=== PATIENT | male | born 2000 ===

== ENCOUNTER 2023-02-15 16:30 | Emergency (ER) | payer BC ==
[~2023-02-15 16:30] MED LIST: Iopamidol-370 76% 500 ML MDV (1 ML CHARGE) ONE
[2023-02-15] MEDS ORDERED: Ondansetron PF 4 MG/2 ML Vial ONE (16:56)
[2023-02-15] MEDS ORDERED: Sodium Chloride 0.9% 100 ML ONE ×2 (16:57→17:01)
[2023-02-15] MEDS ORDERED: Piperacillin/Tazobactam 4.5 GM VIAL ONE (16:57)
[2023-02-15] MEDS ORDERED: Cefepime 2 GM VIAL ONE (17:01)
[2023-02-15 17:07] LABS: Actual Bicarbonate (HCO3v) 25.1 mEq/L (22-28); Analyzer IN Cardio ER; Base Excess -0.7 mEq/L (-2.0 to +3.0); Calcium, Ionized (venous) 1.14 mmol/L (1.16-1.32); Chloride (VBG) 101 mmol/L (98-106); Hematocrit-VBG 61 % (42.0-52.0); Hemoglobin (Hb) 20.7 g/dL (13.2-17.3); Potassium (VBG) 4.53 mmol/L (3.70-5.30); Sodium 141 mmol/L (133-146); pH (venous) 7.365 (7.32-7.43)
[2023-02-15 17:12] LABS: #Eosinphils 0.1 thou/uL (0.0-0.7); #Monocytes 0.6 thou/uL (0.11-0.59); #Neutrophils 8.9 thou/uL (1.40-6.50); %Basophils 0.3 % (0.0-1.0); %Eosinophils 0.7 % (0.0-10.0); %Monocytes 6.1 % (0.0-4.0); %Neutrophils 90.6 % (31.0-61.0); Hematocrit 54.7 % (42.0-52.0); Hemoglobin 19.4 g/dL (14.0-18.0); Mean Corpuscular HGB CONC 35.5 g/dL (32.0-36.0); Mean Corpuscular Hemoglobin 30.9 pg (25.0-35.0); Mean Corpuscular Volume 87.2 fl (78.0-98.0); Mean Platelet Volume 10.4 fL (7.4-10.4); Platelet Count 180 10x3/uL (130-400); Red Blood Cell (RBC) Count 6.27 mill/uL (4.00-5.20); White Blood Cell (WBC) Count 9.9 10x3/uL (4.8-10.8)
[2023-02-15 17:24] LABS: INR-International Normal Ratio 1.1; PTT 27.6 sec (22.9-36.1); Prothrombin Time 14.2 sec (12.0-14.7)
[2023-02-15 17:44] LABS: ALT (SGPT) 17 U/L (8-55); AST (SGOT) 20 U/L (5-34); Alkaline Phosphatase 76 U/L (50-130); Anion Gap 18 mmol/L (10-20); BUN (Urea Nitrogen) 15 mg/dL (8.9-20.6); Bilirubin, Total 1.6 mg/dL (0.2-1.2); Calc. Creatinine Clearance 0 mL/min (70-130); Calcium 9.8 mg/dL (7.8-10.44); Carbon Dioxide 23 mmol/L (22-29); Chloride 103 mmol/L (98-107); Estimated GFR 107; Globulin 2.9 g/dL (2.4-3.5); Glucose 127 mg/dL (70-105); Lipase 8 U/L (8-78); Potassium 4.5 mmol/L (3.5-5.1); Protein, Total 7.9 g/dL (6.0-8.3); Sodium 139 mmol/L (136-145)
[2023-02-15] MEDS ORDERED: Acetaminophen 500 MG TAB ONE (18:45)
[2023-02-15 19:03] LABS: Bacteria/HPF None Seen HPF (None Seen); Bilirubin Negative (Negative); Blood, Urine Negative (Negative); CAUTI Indications for Culture Pelvic or flank pain; Clarity Clear (Clear); Glucose, Urine (Dipstick) Normal (Negative); Ketone, Urine Negative (Negative); Leukocyte Negative Leu/uL (Negative); Nitrite Negative (Negative); Protein, Urine (Dipstick) 10 mg/dL (Neg-Trace); RBC/HPF 0-3 HPF (0-3); Specific Gravity, Urine 1.048 (1.002-1.036); Squamous Epithelial None Seen HPF (0-3); Urobilinogen Normal mg/dL (Less than 2); WBC/HPF None Seen HPF (0-3)
[2023-02-15 19:08] LABS: Urine Culture Reflex No No
[2023-02-15] MEDS ORDERED: Ketorolac Tromethamine 30 MG/ML VIAL ONE ×2 (19:28→20:51)
[2023-02-15] MEDS ORDERED: diphenhydrAMINE 50 MG/ML VIAL ONE (20:51)
[2023-02-15] MEDS ORDERED: Metoclopramide HCl 10 MG/2 ML VIAL ONE (20:51)
[2023-02-15 21:16] LABS: Lactic Acid 1.2 mmol/L (0.5-2.2)
== END 2023-02-15 21:00 | disposition home or self-care (01) ==
LOC: ERS 16:30
DX: I88.0 Nonspecific mesenteric lymphadenitis (principal)
CPT/HCPCS: 36415; 74177; 80053; 81001; 82805; 83605; 83690; 85025; 85610; 85730; 87040; 87086; 93005; 96365; 96375; J0692; J1200; J1885; J2405; J2543; J2765; J3490; Q9967